=== PATIENT | female | born 1990 | race Caucasian/White ===

== ENCOUNTER 2018-06-15 11:08 | Inpatient (IN) | payer OTHER ==
[2018-07-17] MEDS ORDERED: Ondansetron HCl/PF 4 MG/2 ML Vial IVP PRN (15:40)
[2018-07-17] MEDS ORDERED: Misoprostol 200 MCG TAB PR PRN (15:40)
[2018-07-17] MEDS ORDERED: Acetaminophen 500 MG TAB PO PRN (15:40)
[2018-07-17] MEDS ORDERED: Carboprost 250 MCG/ML AMP IM PRN (15:40)
[2018-07-17] MEDS ORDERED: HYDROcodone/Acetaminophen 5/325 mg Tablet PO PRN (15:40)
[2018-07-17] MEDS ORDERED: Promethazine HCl 25 MG/ML VIAL IM PRN (15:40)
[2018-07-17] MEDS ORDERED: Ibuprofen 800 MG TAB PO PRN (15:40)
[2018-07-17] MEDS ORDERED: Methylergonovine 0.2 MG/ML VIAL IM PRN (15:40)
[2018-07-17] MEDS ORDERED: Lidocaine 1% (PF) 30 ML VIAL SC PRN (15:40)
[2018-07-17] MEDS ORDERED: NS / Oxytocin 40 units/1000ml 1,000 ML IV PRN (15:40)
[2018-07-17] MEDS ORDERED: Bupivacaine 0.25% 10 ML VIAL ONE (17:58)
[2018-07-18 00:33] VITALS: BMI 38.6
[2018-07-18] MEDS: Misoprostol 100 MCG TAB VAG SCH ×7 (01:09→20:58)
[2018-07-18 01:24] LABS: Hemoglobin 12.1 g/dL (12.0-16.0); Mean Corpuscular HGB CONC 33.5 g/dL (32.0-36.0); Mean Corpuscular Hemoglobin 29.2 pg (27.0-31.0); Mean Corpuscular Volume 87.3 fL (78.0-98.0); Mean Platelet Volume 7.5 fL (7.4-10.4); Platelet Count 287 thou/uL (130-400); RBC Distribution Width 13.1 % (11.5-14.5); Red Blood Cell (RBC) Count 4.13 mill/uL (4.20-5.40); White Blood Cell (WBC) Count 11.9 thou/uL (4.8-10.8)
[2018-07-18 02:03] LABS: HBSAg Index 0.13 S/CO (0-0.99); Hep B Surf Ag Non-Reactive S/CO (NonReactive)
[2018-07-18 05:11] LABS: Syphilis Antibody Nonreactive (Nonreactive); Syphilis Antibody Index 0.03 S/CO (<1.00 Non-Reactive)
[2018-07-18] MEDS ORDERED: NS / Oxytocin 40 units/1000ml 0 ML ONE (05:54)
[2018-07-18] MEDS ORDERED: Lidocaine 1% (PF) 30 ML VIAL ONE (05:54)
[2018-07-18] MEDS: Lactated Ringer's 1,000 ML IV SCH ×3 (08:37→13:39)
[2018-07-18] MEDS: Butorphanol Tartrate 1 MG/ML VIAL SLOW IVP PRN ×2 (10:07→12:52)
[2018-07-18] MEDS: NS w/ Oxytocin 10 units 500 ML IV SCH ×2 (10:47→17:41)
[2018-07-18] MEDS ORDERED: ePHEDrine/0.9% NaCl/PF SYRINGE 50 mg/10 ml SLOW IVP PRN ×2 (14:33→17:04)
[2018-07-18] MEDS ORDERED: Ondansetron HCl/PF 4 MG/2 ML Vial IVP PRN ×2 (14:33→17:04)
[2018-07-18] MEDS ORDERED: Naloxone HCl 0.4 mg/ml Vial IVP PRN ×4 (14:33→17:04)
[2018-07-18] MEDS ORDERED: diphenhydrAMINE 50 MG/ML VIAL IVP PRN ×2 (14:33→17:04)
[2018-07-18] MEDS ORDERED: Acetaminophen 325 MG TAB PO PRN ×2 (14:33→17:04)
[2018-07-18] MEDS ORDERED: Promethazine HCl 25 MG/ML VIAL IM PRN ×2 (14:33→17:04)
[2018-07-18] MEDS ORDERED: Eucerin (Mineral Oil/Petrolatum,White) 30 gm Jar TOP PRN ×2 (14:33→17:04)
[2018-07-18] MEDS ORDERED: Lactated Ringer's 500 ML IV PRN ×2 (14:33→17:04)
[2018-07-18] MEDS ORDERED: Fentanyl 4 mcg/Bupivacaine 0.1% Cassette 100 ML EPIDURAL SCH ×2 (14:45→17:05)
[2018-07-18] MEDS ORDERED: Communication Order-Pharmacy FS SCH ×2 (14:45→17:15)
[2018-07-18] MEDS ORDERED: Butorphanol Tartrate 1 MG/ML VIAL ONE (15:54)
[2018-07-18] MEDS ORDERED: Butorphanol Tartrate 1 MG/ML VIAL SLOW IVP SCH (16:15)
[2018-07-18] MEDS ORDERED: Fentanyl 100 MCG/2 ML VIAL ONE (16:37)
[2018-07-18] MEDS ORDERED: Fentanyl 100 MCG/2 ML VIAL EPIDURAL PRN (17:04)
[2018-07-18] MEDS ORDERED: Adacel (T-DAP) 0.5 ML VIAL IM ONE (19:31)
[2018-07-18] MEDS ORDERED: Bisacodyl 10 MG SUPP PR PRN (19:31)
[2018-07-18] MEDS ORDERED: Benzocaine/Menthol 20-0.5% 60 ML CAN TOP PRN (19:31)
[2018-07-18] MEDS ORDERED: diphenhydrAMINE 25 MG CAP PO PRN (19:31)
[2018-07-18] MEDS ORDERED: Preparation H Ointment 28 GM TUBE PR PRN (19:31)
[2018-07-18] MEDS ORDERED: traMADol HCl 50 MG TAB PO PRN (19:31)
[2018-07-18] MEDS ORDERED: NS / Oxytocin 40 units/1000ml 1,000 ML IV SCH (19:45)
[2018-07-18] MEDS: Docusate Calcium (SURFAK) 240 MG CAP PO SCH (21:59)
[2018-07-18] MEDS ORDERED: Ibuprofen 800 MG TAB PO SCH (22:00)
--- NOTE | 2018-07-18 23:06 | PDOC.EVN ---
Event Note - Event Note Event Note: [facility] Physical Therapist @2300: Patient seen at bedside. Note in chart. I was called for left buttock pain/rectal pain. No VB. No fever. I saw the patient at bedside. has discomfort to palpation at left buttock area. Dr thibodeaux made aware..no unusal issues reported with repair, and no packs. On exam: epis site intact, no hemorrhoids seen. No active VB. Suspect muscular spasm vs pelvic floor dystonia. Toradol and morphine ordered. I also asked anesthesia to come see her to see if possibly epidural related.
[2018-07-18] MEDS ORDERED: Ketorolac Tromethamine 30 MG/ML VIAL IVP PRN (23:15)
--- NOTE | 2018-07-18 23:31 | PDOC.EVN ---
Event Note - Event Note Event Note: @2330: Follow up: states feels better with standing. Decreased with standing. I discussed with radiology. May be good idea to get pelvic CT to r/o perivaginal ( rare) hematoma.
[2018-07-19] MEDS ORDERED: Meperidine HCl/PF 25 MG/ML VIAL SLOW IVP SCH (00:15)
[2018-07-19] MEDS ORDERED: Methocarbamol 1 GM in Sodium Chloride 0.9% 250 ML 250 ML IVPB SCH (03:30)
[2018-07-19] MEDS ORDERED: Tranexamic Acid 1,000 MG in Sodium Chloride 0.9% 100 ML IVPB SCH (04:30)
--- NOTE | 2018-07-19 06:29 | PRG ---
DATE OF SERVICE: 07/19/2018 TIME: 0442 hours. ROOM: #344 TIME OF ENCOUNTER: 0435 hours - [address] SCAN RESULTS: In brief, I have just talked to the patient and given her the report from the CT scan as the radiolog ist called and gave it to me about 15-20 minutes ago. It seems that the patient has a 7 cm rectal/pr e-sacral hematoma that extends down to the coccyx. It does not seem to be accessible vaginally. As I discussed with the radiologist, it may be reasonable to follow up an another CT this morning to tra ck expansion. I have told this to the patient. Dr. Vila is also aware by my verbal communication with her. I have ordered 1 gram of Lysteda (tranexamic acid) to be given over 1 hour. I have also o rdered to stop the Robaxin. If this is rapidly expanding, we may need to contact Interventional Radi ology. I have also asked to type and cross the patient for 2 units in case she needs blood. I will also order serial (repeat). H&H lab tests.
[2018-07-19] MEDS ORDERED: Promethazine HCl 25 MG/ML VIAL IM PRN (11:19)
[2018-07-19] MEDS ORDERED: Naloxone HCl 0.4 mg/ml Vial IV PRN (11:19)
[2018-07-19] MEDS ORDERED: diphenhydrAMINE 50 MG/ML VIAL IM/IV PRN (11:19)
[2018-07-19] MEDS ORDERED: fentaNYL Citrate/PF 2,000 MCG in Sodium Chloride 0.9% 60 ML IV PRN (11:19)
[2018-07-19] MEDS ORDERED: Ondansetron HCl/PF 4 MG/2 ML Vial IVP PRN (11:19)
[2018-07-19] MEDS ORDERED: diphenhydrAMINE 25 MG CAP PO PRN (11:19)
--- NOTE | 2018-07-19 11:41 | CT ---
CT PELVIS WITHOUT CONTRAST: INDICATIONS: Four hours post with perirectal pain. TECHNIQUE: Multiple axial tomograms obtained through the pelvis without IV or oral contrast. FINDINGS: The uterus is enlarged, consistent with post status. A Mccoy catheter is in place, and the bl adder is contracted. There is abnormal heterogeneous soft tissue and gas density within the endometrial cavity, which may represent retained placenta. There is a large heterogeneous mass in the perirectal region. This mass pushes the rectum to the rig ht. This heterogeneous mass measures approximately 8.5 cm in AP dimension, and would be consistent w ith a large perirectal hematoma. It pushes on the vaginal floor and could possible arise from the va adali, from a delivery complication. IMPRESSION: 1. Post uterus. 2. Possible retained placenta within the endometrial cavity. 3. Large hematoma in the perirectal region, pushing the rectum to the right and impinging on the tati or of the vagina. The patient is scheduled to return for a repeat CT scan with oral and IV contrast. POS: NORMA
[2018-07-19] MEDS ORDERED: Iopamidol 370 76% 50 ML VIAL FS ONE (15:02)
[2018-07-19] MEDS ORDERED: Iopamidol 370 76% 100 ML VIAL ONE (15:02)
[2018-07-19 15:47] LABS: Hemoglobin 8.7 g/dL (12.0-16.0); Mean Corpuscular HGB CONC 32.7 g/dL (32.0-36.0); Mean Corpuscular Hemoglobin 28.8 pg (27.0-31.0); Mean Corpuscular Volume 88.1 fL (78.0-98.0); Mean Platelet Volume 7.3 fL (7.4-10.4); Platelet Count 298 thou/uL (130-400); RBC Distribution Width 13.2 % (11.5-14.5); Red Blood Cell (RBC) Count 3.03 mill/uL (4.20-5.40); White Blood Cell (WBC) Count 14.9 thou/uL (4.8-10.8)
--- NOTE | 2018-07-19 16:11 | CT ---
CT PELVIS WITH CONTRAST: Multiple axial tomograms were obtained of the pelvis with IV enhancement and with oral contrast. INDICATION: Followup presacral hematoma noted on earlier exam. COMPARISON: Comparison is made to the earlier CT of 12:50 a.m. which revealed a large hematoma in the presacral r egion with a uterus. FINDINGS: uterus again noted. There continues to be soft tissue and gas density in the endometrial cavity and attained placenta cannot be excluded. The large presacral hematoma in the deep pelvis is again seen. This produces mass effect on the rect um pushing the rectum to the right. This hematoma continues to measure 8-9 cm AP dimension, similar to the prior exam. However, there is now evidence of continued anteriorly and superiorly on the left in the retroperiton eum. This new retroperitoneal hemorrhage is producing mass effect on the uterus pushing the uterus t o the right. This retroperitoneal blood extends superiorly over the left psoas muscle to the inferio r edge of the left kidney. IMPRESSION: 1. Large presacral hematoma again noted with evidence of continued hemorrhage which now extends into the left retroperitoneum producing mass effect on the uterus. The findings were discussed with Dr. Wei. POS: NORMA
[2018-07-19 18:07] LABS: Hemoglobin 8.6 g/dL (12.0-16.0)
[2018-07-19] MEDS: Docusate Calcium (SURFAK) 240 MG CAP PO SCH (21:15)
[2018-07-19 22:02] LABS: Hemoglobin 7.5 g/dL (12.0-16.0); Mean Corpuscular HGB CONC 32.7 g/dL (32.0-36.0); Mean Corpuscular Hemoglobin 29.1 pg (27.0-31.0); Mean Corpuscular Volume 89.1 fL (78.0-98.0); Mean Platelet Volume 7.3 fL (7.4-10.4); Platelet Count 245 thou/uL (130-400); RBC Distribution Width 13.1 % (11.5-14.5); Red Blood Cell (RBC) Count 2.58 mill/uL (4.20-5.40); White Blood Cell (WBC) Count 12.8 thou/uL (4.8-10.8)
[2018-07-19] MEDS: Zolpidem Tartrate 5 MG TAB PO PRN (22:30)
[2018-07-20] MEDS: Ferrous Sulfate 325 MG TAB PO SCH ×3 (01:04→23:41)
[2018-07-20] MEDS: Docusate Calcium (SURFAK) 240 MG CAP PO SCH ×3 (01:05→21:30)
[2018-07-20] MEDS: Prenatal Vitamin 1 TAB PO SCH ×2 (01:05→19:09)
[2018-07-20 06:03] LABS: #Eosinphils 0.1 thou/uL (0.0-0.7); #Lymphocytes 2.5 thou/uL (1.20-3.40); #Monocytes 0.6 thou/uL (0.11-0.59); #Neutrophils 7.4 thou/uL (1.40-6.50); %Basophils 0.4 % (0.0-1.0); %Eosinophils 1.1 % (0.0-10.0); %Lymphocytes 23.6 % (21.0-51.0); %Monocytes 5.9 % (0.0-10.0); Hemoglobin 7.5 g/dL (12.0-16.0); Mean Corpuscular HGB CONC 33.1 g/dL (32.0-36.0); Mean Corpuscular Hemoglobin 29.5 pg (27.0-31.0); Mean Corpuscular Volume 89.2 fL (78.0-98.0); Mean Platelet Volume 7.2 fL (7.4-10.4); Platelet Count 217 thou/uL (130-400); RBC Distribution Width 13.1 % (11.5-14.5); Red Blood Cell (RBC) Count 2.55 mill/uL (4.20-5.40); White Blood Cell (WBC) Count 10.8 thou/uL (4.8-10.8)
[2018-07-20] MEDS ORDERED: HYDROcodone/Acetaminophen 5/325 mg Tablet PO PRN (07:10)
--- NOTE | 2018-07-20 07:50 | PRG ---
DATE OF SERVICE: 07/20/2018. SUBJECTIVE: The patient is a 27-year-old female day #1, the patient of Dr. Vila, status post a precipitous term spontaneous vaginal delivery. Delivery was complicated by a perirectal niall leandra diagnosed by CT. The patient's hemoglobin has been stable at 7.5 for the last 7 hours and prior to that was stable at 8.5, has dropped from 8.5 to 7.5 in the last 24 hours. Hemoglobin prior to de emilioy was 12.1. The patient reports this morning that her pain is less, and has been easier to cont rol with the fentanyl TOOL COORDINATOR and she has only needed to use it a few times through the night. The patie nt is tolerating p.o. and is having decreased lochia. PHYSICAL EXAMINATION: VITAL SIGNS: This morning, blood pressure 130/73, heart rate of 96, temperature 98.3. GENITOURINARY: Urine output, the patient had about 600-700 mL out in the last few hours. GENERAL: The patient appears to be in no acute distress. She is alert and oriented, cooperative and pleasant to interact with. HEENT: Head is normocephalic, atraumatic. ABDOMEN: Soft. Fundus is firm, deviated slightly to the right which is expected with a hematoma. EXTREMITIES: Nontender, nonedematous. ASSESSMENT AND PLAN: The patient is a 27-year-old, day #1, status post a precipitous term spontaneous vaginal delivery complicated by perirectal hematoma. Hemoglobin is stable at 7.5, hemat ocrit 22.7, platelets 217,000. I will repeat her hemoglobin on 3:00 for this afternoon and have ord ered hydrocodone and to replace the TOOL COORDINATOR pump that she has been using yesterday. I have also ordered a probiotic and Metamucil as a supplement to help minimize risk for constipation. We will continue p ostpartum care and this afternoon probably transferred back to for continued ca re.
[2018-07-20] MEDS ORDERED: Metamucil PACK PO SCH (09:00)
[2018-07-20] MEDS: Floranex Packet PO SCH (11:27)
[2018-07-20] MEDS: HYDROcodone/Acetaminophen 5/325 mg Tablet PO PRN ×2 (15:02→18:14)
[2018-07-20 16:17] LABS: Hemoglobin 8.6 g/dL (12.0-16.0); Mean Corpuscular HGB CONC 33.2 g/dL (32.0-36.0); Mean Corpuscular Hemoglobin 29.5 pg (27.0-31.0); Mean Corpuscular Volume 88.7 fL (78.0-98.0); Mean Platelet Volume 7.2 fL (7.4-10.4); Platelet Count 321 thou/uL (130-400); RBC Distribution Width 13.1 % (11.5-14.5); White Blood Cell (WBC) Count 10.6 thou/uL (4.8-10.8)
[2018-07-20] MEDS ORDERED: HYDROcodone/Acetaminophen 7.5/325 mg Tablet PO PRN (19:21)
--- NOTE | 2018-07-20 21:17 | PDOC.EVN ---
Event Note - Event Note Event Note: Comfortable at present. VS: XL=873/63, P=93, Temp= 98.9 H/H improved this PM, now 8.6/25.7 Will change to Lortab 7.5 q 4 hrs prn per pt. request.
[2018-07-20] MEDS: HYDROcodone/Acetaminophen 7.5/325 mg Tablet PO PRN (22:05)
--- NOTE | 2018-07-21 00:23 | PDOC.PP ---
Post Progress Note Post Day #: PPD#2 Subjective: Resting comfortably at present. Complains of pain only when up to bathroom. Voiding w/o difficulty. PO intake tolerated: yes Ambulation: yes Vital Signs (12 hours) Temp Pulse Resp BP 07/20/18 19:30 98.3 F 07/20/18 19:14 98.9 F 93 18 121/63 07/20/18 15:00 98.9 F 95 18 126/78 Weight Weight 105.233 kg - Physical Examination General: NAD Respiratory: non-labored breathing Psychiatric: normal affect Result Diagrams: 07/20/18 15:51 Additional Labs: Post Labs Blood Type O POSITIVE 07/19/18 05:20 Hep Bs Antigen Non-Reactive S/CO (NonReactive) 07/18/18 01:01 - Assessment/Plan S/p precip with rectal hematoma by CT Stable H/Hs Continue Lortab for pain control, stool softners ordered.
[2018-07-21] MEDS: Zolpidem Tartrate 5 MG TAB PO PRN (02:20)
[2018-07-21] MEDS: HYDROcodone/Acetaminophen 7.5/325 mg Tablet PO PRN (07:24)
[2018-07-21] MEDS: Metamucil PACK PO SCH ×2 (10:01→17:19)
[2018-07-21] MEDS: Docusate Calcium (SURFAK) 240 MG CAP PO SCH ×2 (10:03→21:10)
[2018-07-21] MEDS: Ferrous Sulfate 325 MG TAB PO SCH ×2 (10:03→23:30)
[2018-07-21] MEDS: Floranex Packet PO SCH (10:03)
[2018-07-21] MEDS: HYDROcodone/Acetaminophen 5/325 mg Tablet PO PRN ×6 (11:06→23:10)
[2018-07-21] MEDS: Prenatal Vitamin 1 TAB PO SCH (11:07)
[2018-07-21] MEDS: Ibuprofen 600 MG TAB PO PRN ×3 (11:46→23:00)
[2018-07-22] MEDS: HYDROcodone/Acetaminophen 5/325 mg Tablet PO PRN ×11 (01:30→23:33)
[2018-07-22] MEDS: Ibuprofen 600 MG TAB PO PRN ×3 (06:05→23:49)
[2018-07-22] MEDS: Floranex Packet PO SCH (07:24)
[2018-07-22] MEDS: Milk Of Magnesia 30 ML UDCUP PO PRN (08:06)
[2018-07-22] MEDS: Ferrous Sulfate 325 MG TAB PO SCH ×2 (09:02→17:40)
[2018-07-22] MEDS: Prenatal Vitamin 1 TAB PO SCH (09:02)
[2018-07-22] MEDS: Docusate Calcium (SURFAK) 240 MG CAP PO SCH ×2 (09:02→21:34)
[2018-07-22] MEDS: Metamucil PACK PO SCH ×3 (09:08→21:36)
--- NOTE | 2018-07-22 12:09 | PDOC.PP ---
Post Progress Note Post Day #: 5 Subjective: Painimproved. Was able to shower. Using oral norco and motrin. PO intake tolerated: yes Flatus: yes Ambulation: yes Vital Signs (12 hours) Temp Pulse Resp BP 07/22/18 11:25 98.2 F 83 20 123/64 07/22/18 09:45 98.4 F 86 20 123/76 Weight Weight 232 lb - Physical Examination Abdominal: + bowel sounds, lochia, no distention, appropriately TTP Extremities: negative homans (B) Result Diagrams: 07/20/18 15:51 Additional Labs: Post Labs Blood Type O POSITIVE 07/19/18 05:20 Hep Bs Antigen Non-Reactive S/CO (NonReactive) 07/18/18 01:01 - Assessment/Plan Post day 4-5. Retroperitoneal hematoma. Vitals stable. Pain control improved with oral meds. Transfer to floor. Pain control. Increase activity.
[2018-07-22] MEDS ORDERED: Milk Of Magnesia 30 ML UDCUP PO PRN (17:33)
[2018-07-23] MEDS: HYDROcodone/Acetaminophen 5/325 mg Tablet PO PRN ×9 (01:33→22:30)
[2018-07-23] MEDS: Zolpidem Tartrate 5 MG TAB PO PRN (02:58)
[2018-07-23] MEDS: Ibuprofen 600 MG TAB PO PRN ×3 (05:34→18:05)
--- NOTE | 2018-07-23 08:46 | PDOC.EVN ---
Event Note - Event Note Event Note: S:Feels better but unsteady with walking to bathroom. Pain control adequate with [place] 5 mg q 2 hours and motrin 600 mg q 6 hours O: 98.2 Pulse 80 R 20 126/60 abdomen soft , non distended. A/P: post day5 with retroperitoneal hematoma. Awaiting BM. Will rx for walker to assist with ambulation. Possible later tonight if doing better or in AM.
[2018-07-23] MEDS: Docusate Calcium (SURFAK) 240 MG CAP PO SCH ×2 (09:22→20:36)
[2018-07-23] MEDS: Metamucil PACK PO SCH ×3 (09:22→20:37)
[2018-07-23] MEDS: Floranex Packet PO SCH (09:22)
[2018-07-23] MEDS: Ferrous Sulfate 325 MG TAB PO SCH ×2 (09:22→18:05)
[2018-07-23] MEDS: Milk Of Magnesia 30 ML UDCUP PO PRN (09:22)
[2018-07-23] MEDS: Prenatal Vitamin 1 TAB PO SCH (09:22)
[2018-07-24] MEDS: HYDROcodone/Acetaminophen 5/325 mg Tablet PO PRN ×5 (00:31→12:45)
[2018-07-24] MEDS: Ibuprofen 600 MG TAB PO PRN ×3 (00:32→12:46)
--- NOTE | 2018-07-24 08:05 | PDOC.PP ---
Post Progress Note Post Day #: 6. Subjective: walking better with walker. Had bowel movement.. Ready to go home. O: Afebrile VSS Abdomen soft/non distended. Ext Non tender. A/P: post day 6. Clinically much better. Ready for discharge home. F/u in 2 weeks and 6 weeks. [place] rx and ibuprofen. daily milk of magnesia/stool softener. Vital Signs (12 hours) Temp Pulse Resp BP Pulse Ox 07/24/18 00:36 82 18 128/72 98 07/23/18 20:20 98.6 F 90 18 132/75 97 Weight Weight 232 lb Result Diagrams: 07/20/18 15:51 Additional Labs: Post Labs Blood Type O POSITIVE 07/19/18 05:20 Hep Bs Antigen Non-Reactive S/CO (NonReactive) 07/18/18 01:01
[2018-07-24] MEDS: Milk Of Magnesia 30 ML UDCUP PO PRN (09:20)
[2018-07-24] MEDS: Ferrous Sulfate 325 MG TAB PO SCH (09:21)
[2018-07-24] MEDS: Prenatal Vitamin 1 TAB PO SCH (09:21)
[2018-07-24] MEDS: Metamucil PACK PO SCH (09:22)
[2018-07-24] MEDS: Docusate Calcium (SURFAK) 240 MG CAP PO SCH (09:22)
[2018-07-24] MEDS: Floranex Packet PO SCH (09:22)
[2018-07-24 11:54] VITALS: BP 133/75; TEMP 98.3
== END 2018-07-24 13:25 | disposition home or self-care (01) | DRG 805 ==
LOC: L&D 07-17 23:43 → 3SW 07-18 21:41 → L&D 07-19 08:11 → 3SE 07-22 09:45
PROVIDERS: ADMIT Obstetrics & Gynecology; ATTEND Obstetrics & Gynecology
PROC: 10E0XZZ Delivery of Products of Conception, External Approach (ICD-10-PCS; principal; 2018-07-18)
PROC: 0HQ9XZZ Repair Perineum Skin, External Approach (ICD-10-PCS; 2018-07-18)
PROC: 3E033VJ Introduction of Other Hormone into Peripheral Vein, Percutaneous Approach (ICD-10-PCS; 2018-07-18)
DX: O62.3 Precipitate labor (principal); K66.1 Hemoperitoneum; Z37.0 Single live birth; O71.7 Obstetric hematoma of pelvis; O70.0 First degree perineal laceration during delivery; Z3A.39 39 weeks gestation of pregnancy
CPT/HCPCS: 36415; 36416; 51702; 72192; 72193; 85014; 85018; 85025; 85027; 86780; 86850; 86900; 86901; 87340; 90715; J0131; J0595; J1885; J2001; J2175; J2270; J2800; J3010; J7050; S0020

== ENCOUNTER 2018-07-28 12:06 | Inpatient (IN) | payer OTHER ==
[2018-07-28 12:47] LABS: #Eosinphils 0.1 thou/uL (0.0-0.7); #Lymphocytes 1.2 thou/uL (1.20-3.40); #Monocytes 0.9 thou/uL (0.11-0.59); #Neutrophils 10.2 thou/uL (1.40-6.50); %Basophils 0.2 % (0.0-1.0); %Eosinophils 0.9 % (0.0-10.0); %Lymphocytes 9.8 % (21.0-51.0); Hemoglobin 9.5 g/dL (12.0-16.0); Mean Corpuscular HGB CONC 33.4 g/dL (32.0-36.0); Mean Corpuscular Hemoglobin 29.3 pg (27.0-31.0); Mean Corpuscular Volume 87.9 fL (78.0-98.0); Mean Platelet Volume 5.7 fL (7.4-10.4); Platelet Count 632 thou/uL (130-400); RBC Distribution Width 12.8 % (11.5-14.5); Red Blood Cell (RBC) Count 3.22 mill/uL (4.20-5.40); White Blood Cell (WBC) Count 12.4 thou/uL (4.8-10.8)
[2018-07-28 12:54] LABS: PTT 34.5 SEC (22.9-36.1); Prothrombin Time 13.4 SEC (12.0-14.7)
[2018-07-28 13:18] LABS: Bilirubin Negative (Negative); Blood, Urine Large (Negative); Clarity CLOUDY (Clear); Glucose, Urine (Dipstick) Negative (Negative); Leukocyte Large (Negative); Nitrite Negative (Negative); Protein, Urine (Dipstick) Negative (Neg-Trace); Specific Gravity, Urine 1.013 (1.002-1.036); Urobilinogen 0.2 mg/dL (0.2-1.0); pH, Urine 6.5 (5.0-9.0)
[2018-07-28 13:21] LABS: Bacteria/HPF 2+ HPF (None Seen); Hyaline Casts/LPF 0-3 HYALINE CAST LPF (0-3 Hyaline); Pathc Cast-AUWi Flag 0.14 (0-2.49); Squamous Epithelial None Seen HPF (0-3)
[2018-07-28 13:34] LABS: ALT (SGPT) 13 U/L (8-55); AST (SGOT) 13 U/L (5-34); Albumin 4.1 g/dL (3.5-5.0); Alkaline Phosphatase 103 U/L (40-150); Anion Gap 19 mmol/L (10-20); BUN (Urea Nitrogen) 12 mg/dL (7.0-18.7); Bilirubin, Total 0.4 mg/dL (0.2-1.2); CK (CPK) 40 U/L (29-168); Calc. Creatinine Clearance 0 mL/min (70-130); Carbon Dioxide 20 mmol/L (22-29); Chloride 104 mmol/L (98-107); Estimated GFR-MDRD Greater than 90; Globulin 3.6 g/dL (2.4-3.5); Glucose 97 mg/dL (70-105); Potassium 4.2 mmol/L (3.5-5.1); Protein, Total 7.7 g/dL (6.0-8.3); Sodium 139 mmol/L (136-145)
[2018-07-28] MEDS ORDERED: cefTRIAXone\\ROCEPHIN 2 GM VIAL ONE (14:23)
[2018-07-28] MEDS ORDERED: HYDROcodone/Acetaminophen 5/325 mg Tablet ONE (15:14)
[2018-07-28] MEDS ORDERED: Senokot S 8.6-50 MG TAB PO PRN (15:21)
[2018-07-28] MEDS ORDERED: HYDROcodone/Acetaminophen 5/325 mg Tablet PO PRN (15:21)
[2018-07-28] MEDS ORDERED: Ondansetron ODT 4 MG TAB PO PRN (15:21)
[2018-07-28] MEDS ORDERED: Gentamicin 20 MG/2 ML PF (Neonates) IVPB SCH (15:30)
[2018-07-28 15:55] VITALS: BMI 33.6
[2018-07-28] MEDS: Sodium Chloride 0.9% 1,000 ML IV SCH (15:58)
[2018-07-28] MEDS: Clindamycin/D5W 900 MG in Premix Bag 1 BAG IVPB SCH ×2 (16:09→21:52)
[2018-07-28] MEDS: Ibuprofen 800 MG TAB PO PRN (16:11)
--- NOTE | 2018-07-28 16:44 | HP ---
CHIEF COMPLAINT: Pain and fever. HISTORY OF PRESENT ILLNESS: This is a 27-year-old G1, P1 who had a vaginal delivery on 07/17/2018. This delivery was precipitous and the baby was positioned OP. It was complicated by an approximately 10 cm presacral hematoma that was found after complaints of significant rectal pain. She was discharged home on 07/24/2018 and told to return with any worsening of her symptoms as well as typical precautions. The patient reports she was doing okay until yesterday. She started to experience significant pelvic and rectal pain and pressure. This improved somewhat last night, but this morning became worse again and was accompanied by 100.4 fever. She denies any breast abnormalities burning with urination significant abdominal pain or other concerns. REVIEW OF SYSTEMS: Negative for head, eyes, ears, nose, throat, cardiovascular , respiratory, GI, , neuro, psych, musculoskeletal, skin or constitutional symptoms other than mentioned above. PAST MEDICAL HISTORY: None. PAST SURGICAL HISTORY: None. MEDICATIONS: 1. [place] 5/325 one tab p.o. q.4 hours. 2. Motrin 600 mg, p.o. q.6 hours. 3. Milk of Magnesia p.r.n. 4. Stool softeners. ALLERGIES: No known drug allergies. SOCIAL HISTORY: Negative for tobacco, alcohol, or drug use. FAMILY HISTORY: Noncontributory. PHYSICAL EXAMINATION: VITAL SIGNS: Blood pressure 142/65, pulse 130, respiratory rate 23, temperature 100.9. GENERAL: Awake, alert, in no acute distress. CHEST: Nonlabored breathing. BREASTS: Without any erythema or masses. ABDOMEN: Soft with no guarding or rebound. Bimanual exam reveals exquisite fundal tenderness. EXTREMITIES: No edema. LABORATORY DATA: WBC 12.4, hemoglobin 9.5, hematocrit 28.3. UA with large leukocyte esterase and 2+ bacteria. Chemistry essentially within normal limits and unremarkable. ASSESSMENT AND PLAN: A 27-year-old para 1, status post spontaneous vaginal delivery complicated by presacral hematoma on 07/17/2018. 1. Endometritis, sepsis - given her fundal tenderness, fever, and mildly elevated white count, we will treat her for endometritis with ampicillin, gentamicin, and clindamycin. We will continue to monitor her temperature and vitals as well as her exam. 2. Urinary tract infection - she received a dose of Rocephin in the ER and should be covered by her ordered antibiotics. 3. Hematoma - her hemoglobin is stable from her discharge. If she does not improve with antibiotics, can consider repeating her CT scan to compare to her previous scan. 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 4. DVT prophylaxis - SCDs while in bed. 5. Dr. Vila was notified and aware of the patient's admission and will follow her tomorrow. TRAVIS
[2018-07-28] MEDS: Ampicillin 2 GM in Sodium Chloride 0.9% 100 ML IVPB SCH (17:59)
[2018-07-28] MEDS ORDERED: GENTAMICIN SULFATE IVPB SCH (18:00)
[2018-07-28] MEDS ORDERED: SODIUM CHLORIDE 0.9% IVPB SCH (18:00)
[2018-07-28] MEDS: Gentamicin Sulfate 380 MG in Sodium Chloride 0.9% 100 ML IVPB SCH (18:51)
[2018-07-28] MEDS: HYDROcodone/Acetaminophen 5/325 mg Tablet PO PRN (20:03)
[2018-07-28] MEDS: Acetaminophen 325 MG TAB PO PRN (20:35)
[2018-07-29] MEDS: Ampicillin 2 GM in Sodium Chloride 0.9% 100 ML IVPB SCH ×5 (00:26→23:56)
[2018-07-29] MEDS: Ibuprofen 800 MG TAB PO PRN ×3 (00:26→19:12)
[2018-07-29] MEDS: HYDROcodone/Acetaminophen 5/325 mg Tablet PO PRN ×6 (00:34→23:57)
[2018-07-29] MEDS: Sodium Chloride 0.9% 1,000 ML IV SCH ×2 (00:36→23:58)
[2018-07-29] MEDS: Clindamycin/D5W 900 MG in Premix Bag 1 BAG IVPB SCH ×4 (03:52→22:02)
[2018-07-29] MEDS: Acetaminophen 325 MG TAB PO PRN ×3 (05:02→23:57)
[2018-07-29] MEDS ORDERED: Milk Of Magnesia 30 ML UDCUP PO SCH (08:15)
[2018-07-29] MEDS ORDERED: ISOVUE-370 76%-LOCM 1 ML ONE (13:35)
[2018-07-29 18:09] LABS: Troponin I Less than 0.010 ng/mL (< 0.028)
[2018-07-29] MEDS: Gentamicin Sulfate 380 MG in Sodium Chloride 0.9% 100 ML IVPB SCH (19:16)
[2018-07-29] MEDS ORDERED: ALPRAZolam 0.25 MG TAB PO PRN (19:47)
[2018-07-30] MEDS: Sodium Chloride 0.9% 1,000 ML IV SCH ×3 (00:17→13:58)
[2018-07-30] MEDS: Clindamycin/D5W 900 MG in Premix Bag 1 BAG IVPB SCH ×4 (04:08→22:41)
[2018-07-30] MEDS: Ibuprofen 800 MG TAB PO PRN ×3 (04:08→18:34)
[2018-07-30 06:13] LABS: Mean Corpuscular HGB CONC 31.8 g/dL (32.0-36.0); Mean Corpuscular Hemoglobin 28.5 pg (27.0-31.0); Mean Corpuscular Volume 89.5 fL (78.0-98.0); Mean Platelet Volume 5.9 fL (7.4-10.4); Platelet Count 452 thou/uL (130-400); RBC Distribution Width 12.9 % (11.5-14.5); Red Blood Cell (RBC) Count 2.45 mill/uL (4.20-5.40); White Blood Cell (WBC) Count 7.6 thou/uL (4.8-10.8)
[2018-07-30] MEDS: Ampicillin 2 GM in Sodium Chloride 0.9% 100 ML IVPB SCH ×3 (06:36→17:29)
[2018-07-30] MEDS: HYDROcodone/Acetaminophen 5/325 mg Tablet PO PRN ×4 (06:38→20:38)
--- NOTE | 2018-07-30 09:16 | CT ---
PRELIMINARY REPORT/[facility]/EMERGENTY AFTER-HOURS PROCEDURE CT Abdomen and Pelvis With Intravenous Contrast EXAM DATE/TIME: 07/29/2018 11:37 PM CLINICAL HISTORY: 27 years old, female; Pain; Abdominal pain; Localized; Lower; Prior surgery; Patient HX: Follow up re troperitoneal hematoma; Post TECHNIQUE: Axial computed tomography images of the abdomen and pelvis with intravenous contrast. Coronal reforma tted images were created and reviewed. COMPARISON: CT Pelvis WO Con 07/19/2018 12:48 AM FINDINGS: Lower thorax: No acute findings. ABDOMEN: Liver: Normal. No mass. Gallbladder and bile ducts: Normal. No calcified stones. No ductal dilation. Pancreas: Normal. No ductal dilation. Spleen: Normal. No splenomegaly. Adrenals: Normal. No mass. Kidneys and ureters: Normal. No hydronephrosis. Stomach and bowel: No bowel wall thickening or intestinal obstruction. Appendix: Appendix not visualized. No evidence of appendicitis. PELVIS: Bladder: Unremarkable as visualized. Reproductive: Trace residual gas in the endometrial cavity. Persistent heterogeneous material in the endometrial cavity, decreased compared to the prior study, consistent with residual blood products. 1.3 cm solid nodule at the anterior aspect of the uterus may be a small pedunculated/subser osal uterine fibroid. ABDOMEN and PELVIS: Intraperitoneal space: Normal. No free air. No significant fluid collection. Bones/joints: No acute fracture. No dislocation. Soft tissues: Mild decrease in size of the left posterolateral pararectal extraperitoneal pelvic niall leandra which measures up to 10 cm in maximum dimension. Vasculature: Normal. No abdominal aortic aneurysm. Lymph nodes: Normal. No enlarged lymph nodes. IMPRESSION: 1. Mild decrease in size of the left posterolateral pararectal extraperitoneal pelvic hematoma which measures up to 10 cm in maximum dimension. 2. Trace residual gas in the endometrial cavity. Persistent heterogeneous material in the endometrial cavity, decreased compared to the prior study, consistent with residual blood products. Thank you for allowing us to participate in the care of your patient. Dictated and Authenticated by: Demario Etienne MD 07/30/2018 12:42 AM Central Time ([place] & [place]) FINAL REPORT CT ABDOMEN AND PELVIS WITH CONTRAST: Date: 07/29/18 HISTORY: Retroperitoneal hematoma. COMPARISON: CT pelvis dated 07/19/18. FINDINGS/IMPRESSION: Findings and impression are concordant with the preliminary report by Aravind. POS: TPC
[2018-07-30] MEDS: Acetaminophen 325 MG TAB PO PRN ×3 (09:57→20:39)
[2018-07-30] MEDS ORDERED: Iron, Sodium Ferric Gluconate 250 MG, Admixture Fee 1 EACH in Sodium Chloride 0.9% 250 ... IVPB SCH (10:00)
[2018-07-30] MEDS: Gentamicin Sulfate 380 MG in Sodium Chloride 0.9% 100 ML IVPB SCH (17:29)
[2018-07-31] MEDS: Ampicillin 2 GM in Sodium Chloride 0.9% 100 ML IVPB SCH ×2 (00:21→07:08)
[2018-07-31] MEDS: HYDROcodone/Acetaminophen 5/325 mg Tablet PO PRN ×2 (01:09→08:21)
[2018-07-31] MEDS: Ibuprofen 800 MG TAB PO PRN (03:17)
[2018-07-31] MEDS: Clindamycin/D5W 900 MG in Premix Bag 1 BAG IVPB SCH (04:50)
[2018-07-31 07:57] VITALS: BP 125/86; TEMP 99
[2018-07-31] MEDS: Acetaminophen 325 MG TAB PO PRN (08:21)
[2018-07-31] MEDS: Sodium Chloride 0.9% 1,000 ML IV SCH (08:23)
--- NOTE | 2018-08-01 15:32 | DIS ---
DATE OF ADMISSION: 07/28/2018 DATE OF DISCHARGE: 07/31/2018 SUMMARY OF HOSPITAL ADMISSION: Patient is a 27-year-old, white female, G1, P0 who was admitted for e lective Cytotec labor induction on 07/17/2018. She progressed to spontaneous vaginal delivery on 08/2018. Approximately 3 hours , she developed a severe rectal pain and buttock pain after epidural had worn off. She was evaluated by the OB Hospitalist, Dr. Emir Zavala at that time, and no evidence of vulvar hematoma was noted. Initially, she thought she may be having some levator ani muscular spasms, it was treated with pain medicine including IV Toradol, IV morphine, and also muscle relaxers with no resolution of the pain. Due to the continued severe pain, she underwent a CT scan of the abdomen and pelvis, and at that time, there were findings of a presacral retroperitoneal hemat rah approximately 10 cm in size. She was treated this with IV narcotics, and nonsteroidals were stop ped. She was also given a gram of Lysteda, tranexamic acid to help the retroperitoneal bleed. She w as followed with serial hemoglobins, and she stabilized approximately at 8.0 range. Her pain managem ent was controlled with IV narcotics and then eventually was changed over to oral narcotics. She was initially observed for the first 24 to 48 hours in the labor ICU unit with frequent vital signs, and urine output, which remained stable. She continued to improve and then was discharged home on postp artum day #6 with pain medication of [place] 5/325 mg p.o. q.4 hours and Motrin 600 mg every 6 hours. The patient then on 07/28/2018, which is approximately 10 days' started noticing increasin g uterine pain and was noted to have a fever, and she presented to the emergency room. She was admit ne at that time by the OB Hospitalist, Dr. Krys Norwood, who felt that she had metritis with a very tender uterine examination. She was started on triple antibiotics of ampicillin, gentamicin, and cl indamycin. Her fever that she defervesced after 24 hours of the IV antibiotics. Her hemoglobin was essentially stable in the 7.5 range, and her white count went from 12 down to 7 with normalization. Pain control improved after the antibiotics, and her treatment was initiated. She was having normal bowel movements and function. She then underwent a repeat followup pelvic CT of abdomen and pelvis w ith contrast, both oral and IV, which shows decreasing size, and the retroperitoneal hematoma approxi mately from 10 to 9 cm. There were no abnormalities anywhere else in the abdomen noted. Uterus had some clots in there, but no evidence of any significant retained products or any other findings intra -abdominally. She continued to improve clinically and was discharged home on 07/31/2018 after she kumar d been afebrile over 48 hours and switched over to Augmentin oral antibiotics 875 p.o. b.i.d. for 7 d ays. She is also discharged home with [place] 5/325 mg 1 p.o. q.4 to 6 hours p.r.n. pain and then blas thompson continued the Motrin 600 mg q.6 to 8 hours. She has a followup in 1 week in my office.
== END 2018-07-31 13:45 | disposition home or self-care (01) | DRG 776 ==
LOC: ERS 12:06 → 3SE 15:33
PROVIDERS: ADMIT Obstetrics & Gynecology; ATTEND Obstetrics & Gynecology
DX: O85 Puerperal sepsis (principal); O86.20 Urinary tract infection following delivery, unspecified; O86.12 Endometritis following delivery; F41.9 Anxiety disorder, unspecified; O90.81 Anemia of the puerperium
CPT/HCPCS: 36415; 74177; 80053; 81003; 81015; 82550; 83605; 84484; 85025; 85027; 85610; 85730; 86850; 86900; 86901; 87040; 93005; 93010; 96360; 96361; 96365; J0290; J0696; J1580; J2916; J3490; J7050

== ENCOUNTER 2022-09-02 04:24 | Emergency (ER) | payer OTHER | END 2022-09-02 04:44 | LOC: ERS 04:24 | DX: Z53.21 Procedure and treatment not carried out due to patient leaving prior to being seen by health care provider (principal) ==

== ENCOUNTER 2024-07-02 16:48 | Observation (INO) | payer OTHER ==
[2024-07-02] MEDS ORDERED: diphenhydrAMINE 50 MG/ML VIAL ONE (17:23)
[2024-07-02] MEDS ORDERED: Famotidine/PF 20 mg/2ml Vial ONE (17:24)
[2024-07-02] MEDS ORDERED: methylPREDNISolone Sod Succ/PF 125 MG/2 ML VIAL ONE (17:24)
[2024-07-02 22:12] LABS: Lipase 34 U/L (8-78); Magnesium 2.1 mg/dL (1.6-2.6)
[2024-07-02] MEDS ORDERED: Ondansetron ODT 4 MG TAB SL PRN (22:20)
[2024-07-02] MEDS ORDERED: Ondansetron ODT 4 MG TAB PO PRN (23:04)
[2024-07-02] MEDS ORDERED: EPINEPHrine 1 MG/ML VIAL IJ PRN ×2 (23:14→23:17)
[2024-07-03 00:55] VITALS: BMI 29.0
[2024-07-03] MEDS: Acetaminophen 325 MG TAB PO PRN (01:12)
[2024-07-03] MEDS: hydrOXYzine 25 MG TAB PO PRN (01:13)
[2024-07-03] MEDS: Ondansetron PF 4 MG/2 ML Vial IVP PRN (01:13)
[2024-07-03 04:29] LABS: #Basophils Less than 0.03 10x3/uL (0.0-0.2); #Eosinphils Less than 0.03 10x3/uL (0.0-0.7); %Lymphocytes 10.6 % (21.0-51.0); %Monocytes 1.2 % (0.0-10.0); %Neutrophils 87.7 % (42.0-75.0); Hematocrit 37.7 % (36.0-47.0); Hemoglobin 12.3 g/dL (12.0-16.0); Mean Corpuscular HGB CONC 32.6 g/dL (32.0-36.0); Mean Corpuscular Hemoglobin 29.7 pg (27.0-31.0); Mean Corpuscular Volume 91.1 fL (78.0-98.0); Mean Platelet Volume 10.2 fL (7.4-10.4); Platelet Count 327 10x3/uL (130-400); RBC Distribution Width 12.9 % (11.5-14.5); Red Blood Cell (RBC) Count 4.14 mill/uL (4.20-5.40)
[2024-07-03 04:56] LABS: ALT (SGPT) 10 U/L (8-55); AST (SGOT) 13 U/L (5-34); Albumin 3.9 g/dL (3.5-5.0); Alkaline Phosphatase 45 U/L (40-110); Anion Gap 10 mmol/L (10-20); BUN (Urea Nitrogen) 10 mg/dL (7.0-18.7); Bilirubin, Total 0.4 mg/dL (0.2-1.2); Calc. Creatinine Clearance 144 mL/min (70-130); Calcium 9.2 mg/dL (7.8-10.44); Carbon Dioxide 22 mmol/L (22-29); Chloride 109 mmol/L (98-107); Estimated GFR 116; Globulin 2.7 g/dL (2.4-3.5); Glucose 132 mg/dL (70-105); Potassium 4.6 mmol/L (3.5-5.1); Protein, Total 6.6 g/dL (6.0-8.3); Sodium 136 mmol/L (136-145)
[2024-07-03] MEDS: methylPREDNISolone Sod Succ/PF 125 MG/2 ML VIAL IVP SCH (09:27)
[2024-07-03 10:33] VITALS: TEMP 98.8
[2024-07-03 12:00] VITALS: BP 110/69
== END 2024-07-03 14:15 | disposition home or self-care (01) ==
LOC: ERS 16:48 → 2SE 22:21
PROVIDERS: ADMIT Family Medicine; ATTEND Family Medicine
DX: T78.2XXA Anaphylactic shock, unspecified, initial encounter (principal); N20.0 Calculus of kidney; X58.XXXA Exposure to other specified factors, initial encounter
CPT/HCPCS: 36415; 80053; 83690; 83735; 85025; 93005; 96374; 96375; G0378; J1200; J2405; J2919; J3490